=== PATIENT | female | born 1970 ===

== ENCOUNTER 2020-08-06 14:28 | Outpatient (REF) | payer MEDICAID, SELFPAY ==
[2020-08-06 19:09] LABS: HCT 37.9 % (36.0-46.0); HGB 12.7 g/dL (11.2-15.7); MCH 27.9 pg (27.0-33.0); MCHC 33.5 % (32.0-36.0); MCV 83.1 fL (80-95); MPV 9.8 fL (8.0-11.0); Platelet Count 268 10^3/uL (130-400); RBC 4.56 10^6/uL (3.93-5.22); RDW 13.4 % (11.7-14.6)
[2020-08-06 19:58] LABS: ALT 24 U/L (14-59); AST 16 U/L (15-37); Alkaline Phosphatase 125 U/L (46-116); Anion Gap 4.6 mmol/L (3-11); BUN 13 mg/dL (7-18); Bilirubin, Total 0.5 mg/dL (0.2-1.0); CO2 30.4 mmol/L (21.0-32.0); CREATININE 0.74 mg/dL (0.55-1.02); Calcium 8.9 mg/dL (8.5-10.1); Calculated LDL 135 mg/dL (<100); Chloride 105 mmol/L (98-107); Cholesterol 246 mg/dL (<200); Glucose 143 mg/dL (74-106); HDL Cholesterol 38 mg/dL (40-60); Sodium 140 mmol/L (136-145); TSH 2.41 uIU/mL (0.36-3.74); Total Protein 7.6 g/dL (6.4-8.2); Triglyceride 369 mg/dL (<150)
[2020-08-06 20:18] LABS: Hemoglobin A1C 5.9 % (<5.7)
[2020-08-06 20:41] LABS: FREE T4 0.89 ng/dL (0.76-1.46)
== END 2020-08-06 14:48 ==
LOC: NCHCN 14:28
PROVIDERS: PCP Internal Medicine; Visit Provider Internal Medicine
DX: R53.83 Other fatigue (principal); R01.1 Cardiac murmur, unspecified; E66.3 Overweight
CPT/HCPCS: 80053; 80061; 85027; 83036; 84439; 84443

== ENCOUNTER 2021-01-28 15:01 | Outpatient (REF) | payer MEDICAID, SELFPAY ==
[2021-01-30 11:55] LABS: COVID-19 RT-PCR UVMMC Result Positive (Negative)
== END 2021-01-28 15:02 | disposition home or self-care (01) ==
LOC: NCHCN 15:01
PROVIDERS: PCP Internal Medicine; Visit Provider Physician Assistant
DX: Z20.822 Contact with and (suspected) exposure to COVID-19 (principal)
CPT/HCPCS: U0003